=== PATIENT | female | born 1965 | race Caucasian/White ===

== ENCOUNTER → 2024-01-19 07:53 | Outpatient (REF) | payer OTHER, SELFPAY | LOC: WDC 07:53 | PROVIDERS: ATTENDING PHYSICIAN Obstetrics & Gynecology Gynecology; FAMILY PHYSICIAN Family Medicine | DX: Z12.31 Encounter for screening mammogram for malignant neoplasm of breast (principal) | CPT/HCPCS: 77063; 77067 ==

== ENCOUNTER → 2024-03-16 07:29 | Outpatient (REF) | payer OTHER, SELFPAY | LOC: HWRAD 07:29 | PROVIDERS: ATTENDING PHYSICIAN Nurse Practitioner Family; FAMILY PHYSICIAN Family Medicine | DX: R10.9 Unspecified abdominal pain (principal) | CPT/HCPCS: 76770 ==

== ENCOUNTER → 2024-04-28 06:33 | Day surgery (SDC) | payer OTHER, SELFPAY ==
[2024-04-28 07:23] LABS: Glucose - Point of Care 109 mg/dl (70-99)
== END ==
LOC: GI 06:33
PROVIDERS: ATTENDING PHYSICIAN Internal Medicine Gastroenterology
DX: D12.8 Benign neoplasm of rectum (principal); K64.8 Other hemorrhoids; Z86.010 Personal history of colon polyps
CPT/HCPCS: 45385; 88305; 82962

== ENCOUNTER → 2024-05-28 10:22 | Outpatient (REF) | payer OTHER, SELFPAY | LOC: RAD 10:22 | PROVIDERS: ATTENDING PHYSICIAN Physician Assistant; FAMILY PHYSICIAN Family Medicine | DX: M19.90 Unspecified osteoarthritis, unspecified site (principal); M25.552 Pain in left hip; M79.641 Pain in right hand; M79.642 Pain in left hand; M79.644 Pain in right finger(s); R76.8 Other specified abnormal immunological findings in serum | CPT/HCPCS: 73130; 73502 ==

== ENCOUNTER 2024-09-30 13:37 | Emergency (ER) | payer OTHER, SELFPAY ==
[2024-09-30 13:46] VITALS: BP 159/94
[2024-09-30 14:24] LABS: % Basophils 0.4 % (0-2); % Eosinophils 1.4 % (0-6); % Immature Granulocytes 0.7 % (0-0.5); % Lymphocytes 23.3 % (20.5-51.1); % Neutrophils 68.2 % (42.2-75.2); Absolute Eosinophils 0.1 10^3/uL (0-0.7); Absolute Immature Granulocytes 0.1 10^3/uL (0-0.05); Absolute Lymphocytes 1.7 10^3/uL (1.2-3.4); Absolute Monocytes 0.4 10^3/uL (0.1-0.6); Absolute Neutrophils 4.9 10^3/uL (1.4-6.5); Hematocrit 42.4 % (37.0-47.0); Hemoglobin 13.6 g/dL (12.0-16.0); Mean Corp Hgb Conc. 32.1 g/dL (33.0-37.0); Mean Corpuscular Hgb 29.1 pg (27.0-31.0); Mean Corpuscular Volume 90.8 fL (81.0-99.0); Mean Platelet Volume 9.2 fL (7.4-10.4); Nucleated Red Blood Cells % 0 %; Platelet Count 241 10^3/uL (130-400); Red Blood Cell Count 4.67 10^6/uL (4.20-5.40); White Blood Cell Count 7.2 10^3/uL (4.8-10.8)
--- NOTE | 2024-09-30 14:33 | ED.GENMED ---
History of Present Illness
General
Chief Complaint: Blood Pressure Problem
Source: patient
Exam Limitations: none
Time Seen by Provider: 09/30/24 14:09
Nursing documentation reviewed up to this point in time: agreed with
History of Present Illness
History of Present Illness:
58-year-old female past with history of hypertension, GERD, diabetes presenting to the emergency department today with concerns of a vague headache nausea some photosensitivity this morning. Took her blood pressure at home in the 150s over 100.
Denies any chest pain shortness of breath numbness, weakness.
Past History
Past History
ED Past Medical History: HTN and NIDDM
Social History
Tobacco: Non-smoker
Alcohol: Occasional
Drug: None
Personal:
Employment: Employed
Family History
Family History: Diabetes, Hypertension and CAD
Review of Systems
Review of Systems
Allergies reviewed?: Yes
All Other Systems: ROS reviewed and negative except as documented in HPI and ROS
Phy Exam
Physical Exam
Physical Exam:
GENERAL: Alert , in no apparent distress
EYE: pupils equal and reactive
NECK: Supple, no significant adenopathy.
ENT: o/p clr, mmm.
CARDIAC: Regular rate and rhythm .
LUNGS: Clear breath sounds bilaterally, no acute respiratory distress, no wheezes/rales/rhonchi
ABDOMEN: Soft, without focal tenderness, no r/g, no cvat
NEUROLOGICAL: Alert and oriented, no focal neuro deficits
SKIN: Warm and dry, skin intact.
MUSCULOSKELETAL: No edema, well perfused.
PSYCH: Normal and appropriate interaction.
Course
Orders/Labs/Results
Orders:
Orders
09/30/24 13:50
Electrocardiogram (*1) Urgent
Reason for Study: Hypertension, Benign
09/30/24 13:51
EKG- Treatment ONCE
09/30/24 13:59
CMP [Comprehensive Metabolic Panel] Urgent
Complete Blood Count/With Diff Urgent
09/30/24 14:26
Ketorolac [Toradol] 30 mg IM NOW STA
Metoclopramide [Reglan] 10 mg PO NOW STA
09/30/24 15:23
Ketorolac [Toradol] 30 mg IV NOW STA
Metoclopramide [Reglan] 10 mg IV NOW STA
Abnormal Lab Results
09/30/24
13:59
MCHC 32.1 L g/dL
(33.0-37.0)
Abs Immat Gran (auto) 0.1 H 10^3/uL
(0-0.05)
Immature Gran % 0.7 H %
(0-0.5)
BUN 30 H mg/dl
(7-17)
Glucose 120 H mg/dl
(70-99)
09/30/24 13:59
09/30/24 13:59
Vital Signs
Initial and Last Documented VS:
Initial Vital Signs
Temp Pulse Resp BP Pulse Ox
97.7 F 79 18 159/94 99
09/30/24 13:46 09/30/24 13:46 09/30/24 13:46 09/30/24 13:46 09/30/24 13:46
Last Documented Vital Signs
Temp Pulse Resp BP Pulse Ox
97.7 F 79 18 136/90 99
09/30/24 13:46 09/30/24 13:46 09/30/24 13:46 09/30/24 16:00 09/30/24 13:46
MDM/Problems Addressed
MDM/Problems Addressed:
58-year-old female presenting to the emergency department today with concerns of headache nausea photosensitivity this morning took her blood pressure which was in the 150s over 100 today. On arrival patient claims have very mild nausea very mild
frontal headache denies any specific chest pain shortness of breath. Has had some achy shoulder discomfort over the past few days. Initial EKG nonischemic. CBC normal. Patient well-appearing no distress blood pressure improving after receiving
medications for symptoms otherwise stable for outpatient management return precautions given.
*Critical Care Note
Total Time (30-74mins, 75-104mins- exclusive of procedures): Not Applicable
ED Attending Note
-
Portions of this chart may have been created with voice recognition software.� Occasional wrong word or��sound alike� substitutions may have occurred due to the inherent limitations of voice recognition software.
Discharge Plan
Departure
Patient Disposition: Home (Routine Discharge)
Date of Disposition: 09/30/24
Time of Disposition: 17:19
Patient with high blood pressure during this ER visit?: No
Condition: Good
Covid-19: Not Applicable
Discharge Problem:
Headache
Instructions: BLOOD PRESSURE
Prescriptions:
No Action
metformin [Fortamet] 500 MG tablet extended release 24hr
500 mg PO HS
famotidine [Pepcid AC] 20 MG tablet
20 mg PO BID
biotin 500 MCG capsule
15,000 mcg PO DAILY
Senna Plus 1 EACH capsule
2 ea PO BID
Magnesium Gluconate
600 mg PO BID
metformin 500 mg Tablet
1,000 mg PO DAILY AT 0700
lisinopril 5 mg Tablet
5 mg PO 1XD
Mounjaro
2.5 unit SC WEEKLY
acetaminophen 325 mg Tablet
650 mg PO Q4HPRN PRN (Reason: mild pain) Qty: 60 0RF
docusate sodium 100 mg Capsule
100 mg PO BID Qty: 60 0RF
ibuprofen 600 mg Tablet
600 mg PO Q4HPRN PRN (Reason: mild cramps) Qty: 60 0RF
oxycodone 5 mg Tablet
5 mg PO Q4HPRN PRN (Reason: severe pain when tolerating PO) Qty: 10 0RF
Referrals:
Chavez Corona DO [Family Provider] -
Activity Restrictions/Additional Instructions:
You came to the emergency department today with concerns of headache and nausea. Your blood pressure was initially elevated but improved treatment of your symptoms. Please help closely with your primary care doctor. Return to the emergency
department any worsening, new or concerning symptoms.
Interventions
Interventions:
*Risk Screen - Suicide Last Done: 09/30/24 13:46
*General Assessment Last Done: 09/30/24 13:46
*Neglect/Abuse Screening Last Done: 09/30/24 13:46
*ED COVID-19 Vaccine History Last Done: 09/30/24 13:46
Discharge Date and Time
Print Language: CROATIAN
[2024-09-30 14:37] LABS: ALT (SGPT) 17 U/L (0-35); AST (SGOT) 21 U/L (14-36); Albumin 4.8 g/dl (3.5-5.0); Alkaline Phosphatase 59 U/L (38-126); Blood Urea Nitrogen 30 mg/dl (7-17); Calcium 9.8 mg/dl (8.4-10.2); Carbon Dioxide 26 mmol/L (22-30); Chloride 102 mmol/L (98-107); Glucose 120 mg/dl (70-99); Potassium 4.4 mmol/L (3.5-5.1); Sodium 139 mmol/L (135-145); Total Bilirubin 0.5 mg/dl (0.2-1.3); Total Protein 7.6 g/dl (6.3-8.2); eGFR > 60.00
[2024-09-30] MEDS: TORADOL 30 MG IV (15:26)
[2024-09-30] MEDS: REGLAN 10 MG IV (15:26)
[2024-09-30 16:00] VITALS: BP 136/90
== END 2024-09-30 17:19 | disposition home or self-care (01) ==
LOC: EMR 13:37
PROVIDERS: Student in an Organized Health Care Education/Training Program; EMERGENCY PHYSICIAN Emergency Medicine; FAMILY PHYSICIAN Family Medicine
DX: R51.9 Headache, unspecified (principal); I10 Essential (primary) hypertension; E11.9 Type 2 diabetes mellitus without complications; K21.9 Gastro-esophageal reflux disease without esophagitis
CPT/HCPCS: 96374; 96375; 99284; 80053; 85025; 93005

== ENCOUNTER → 2024-11-23 06:25 | Outpatient (REF) | payer OTHER, SELFPAY | LOC: EMG 06:25 | PROVIDERS: ATTENDING PHYSICIAN Family Medicine | DX: R20.0 Anesthesia of skin (principal); R20.2 Paresthesia of skin | CPT/HCPCS: 95886; 95911 ==

== ENCOUNTER → 2024-12-13 15:26 | Outpatient (REF) | payer OTHER, SELFPAY | LOC: RCS 15:26 | PROVIDERS: ATTENDING PHYSICIAN Internal Medicine Cardiovascular Disease; FAMILY PHYSICIAN Family Medicine | DX: R07.89 Other chest pain (principal) | CPT/HCPCS: 93306 ==

== ENCOUNTER → 2024-12-20 08:23 | Outpatient (REF) | payer OTHER, SELFPAY ==
--- NOTE | 2024-12-20 10:34 | CARDSERVLU ---
Echocardiogram with [facility] completed after protocol screening completed. Allergies verified.
Patent IV site: 22 g angio inserted in LAC
IV site flushed with 0.9% NaCl pre and post administration.
Diluted bolus method utilized to enhance visualization of ventricular gamble.
Total volume given: 6 mL
Patient tolerated all procedures well without complications.
IV d/c'd bandage applied after pressure held.
== END ==
LOC: RCS 08:23
PROVIDERS: ATTENDING PHYSICIAN Internal Medicine Cardiovascular Disease; FAMILY PHYSICIAN Family Medicine
DX: R07.89 Other chest pain (principal)
CPT/HCPCS: 93017; 93350

== ENCOUNTER → 2025-01-20 07:37 | Outpatient (REF) | payer OTHER, SELFPAY | LOC: WDC 07:37 | PROVIDERS: ATTENDING PHYSICIAN Obstetrics & Gynecology Gynecology; FAMILY PHYSICIAN Family Medicine | DX: Z12.31 Encounter for screening mammogram for malignant neoplasm of breast (principal) | CPT/HCPCS: 77063; 77067 ==

== ENCOUNTER 2025-01-22 07:06 | Emergency (ER) | payer OTHER, SELFPAY ==
[2025-01-22 07:21] VITALS: BP 140/91
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
[2025-01-22 09:52] VITALS: BMI 34.0
[2025-01-22] MEDS: ADACEL 0.5 ML IM (10:22)
[2025-01-22] MEDS: RABAVERT RABIES VACC W-DILUENT 2.5 UNIT IM (11:26)
[2025-01-22 11:52] VITALS: BP 136/82
== END 2025-01-22 11:53 | disposition home or self-care (01) ==
LOC: EMR 07:06
PROVIDERS: EMERGENCY PHYSICIAN Emergency Medicine; FAMILY PHYSICIAN Family Medicine
DX: S00.211A Abrasion of right eyelid and periocular area, initial encounter (principal); W55.03XA Scratched by cat, initial encounter; Z23 Encounter for immunization
CPT/HCPCS: 90471; 99283; 90472; 90375; 90675; 90715

== ENCOUNTER 2025-01-24 16:24 | Emergency (ER) | payer OTHER, SELFPAY ==
[2025-01-24 16:29] VITALS: BP 131/86
[2025-01-24 17:19] VITALS: BMI 34.0
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
[2025-01-24] MEDS: HyperRAB 1966 UNIT IM (17:46)
== END 2025-01-24 18:16 | disposition home or self-care (01) ==
LOC: EMR 16:24
PROVIDERS: EMERGENCY PHYSICIAN Student in an Organized Health Care Education/Training Program
DX: S00.211A Abrasion of right eyelid and periocular area, initial encounter (principal); W55.03XA Scratched by cat, initial encounter; Z23 Encounter for immunization; E11.9 Type 2 diabetes mellitus without complications; I10 Essential (primary) hypertension; Z88.1 Allergy status to other antibiotic agents
CPT/HCPCS: 99284; 96372; 90375

== ENCOUNTER 2025-02-08 15:10 | Outpatient (RCR) | payer OTHER, SELFPAY ==
[2025-01-28 15:04] VITALS: BP 129/68
[2025-01-28] MEDS: RABAVERT RABIES VACC W-DILUENT 2.5 UNIT IM (16:02)
[2025-02-01 13:50] VITALS: BP 152/82
[2025-02-01] MEDS: RABAVERT RABIES VACC W-DILUENT 2.5 UNIT IM (14:19)
[2025-02-08 15:17] VITALS: BP 129/73
[2025-02-08] MEDS: RABAVERT RABIES VACC W-DILUENT 2.5 UNIT IM (15:24)
== END 2025-02-09 10:06 | disposition home or self-care (01) ==
LOC: OID 15:10
PROVIDERS: ATTENDING PHYSICIAN Emergency Medicine; FAMILY PHYSICIAN Family Medicine
DX: Z20.3 Contact with and (suspected) exposure to rabies (principal); Z23 Encounter for immunization
CPT/HCPCS: 90471; 90675

== ENCOUNTER → 2025-07-21 17:36 | Outpatient (REF) | payer OTHER, SELFPAY | LOC: REG 17:36 | PROVIDERS: ATTENDING PHYSICIAN Family Medicine | DX: R10.32 Left lower quadrant pain (principal) | CPT/HCPCS: 74018 ==

== ENCOUNTER → 2025-08-01 07:23 | Outpatient (REF) | payer OTHER, SELFPAY | LOC: HWRAD 07:23 | PROVIDERS: ATTENDING PHYSICIAN Family Medicine | DX: R10.32 Left lower quadrant pain (principal) | CPT/HCPCS: 76700 ==